=== PATIENT | male | born 1985 | race Caucasian/White ===

== ENCOUNTER → 2016-12-17 14:52 | Outpatient (CLI) | payer MEDICARE | END | disposition home or self-care (01) | LOC: D.CT 14:52 | DX: R22.33 Localized swelling, mass and lump, upper limb, bilateral (principal) ==

== ENCOUNTER → 2017-05-19 08:25 | Outpatient (CLI) | payer MEDICARE ==
[~2017-05-19 08:25] MED LIST: BACLOFEN20 M1 PO; CELEXA20 MG PO; ENDOCET 10-3251 TAB PO; GAS-X80 MG PO; LINZESS145 MCG PO; MUPIROCIN22 GM TOPICAL; NEURONTIN 300300 MG PO; OMEPRAZOLE20 M1 PO; PENTOXIFYLLINE400 MG PO; PROAIR HFA8.5 GM INH; TRAZODONE HCL150 MG PO; UROCIT-K10 MEQ PO; XARELTO20 MG PO; ZANAFLEX4 MG PO
[2017-07-29 12:57] VITALS: BMI 30.1
== END | disposition home or self-care (01) ==
LOC: D.CT 08:25
DX: R10.9 Unspecified abdominal pain (principal)

== ENCOUNTER 2017-07-27 10:54 | Day surgery (SDC) | payer MEDICARE ==
[~2017-07-27] VITALS: Ht 177.8 cm; Wt 95.5 kg
--- NOTE | ~2017-07-27 | OP ---
PATIENT NAME: SHAWNA BERNAL MEDICAL RECORD: [id number] :83 LOCATION:[facility] ADMISSION DATE: SURGEON: ARLENE MARTINO DO DATE OF OPERATION: 07/27/2017 PROCEDURE: Colonoscopy. INDICATIONS FOR PROCEDURE: Chronic constipation, generalized abdominal pain and nausea, change in bowel habits. SCOPE: [employer] video pediatric colonoscope. MEDICATIONS: Propofol 270 mg IV per anesthesia. WITHDRAWAL TIME: 10 minutes. ESTIMATED BLOOD LOSS: Minimal. COMPLICATIONS: None. FINDINGS: Informed consent was given. The patient was made comfortable with the above medication. After reaching an adequate level of sedation by slow IV push, the patient was placed on his left side. A digital rectal examination was performed and was normal. The endoscope was then advanced under direct visualization through the rectum to the cecum with visualization of the appendiceal orifice and the ileocecal valve. The endoscope was slowly withdrawn and mucosa was carefully examined. The prep quality was adequate. There were no visualized polyps on today's examination. There were also no diverticula or other abnormalities. Retroflexion was performed in the rectum with a normal-appearing rectal wall. Random biopsies were taken throughout the colon to rule out microscopic colitis or other abnormalities which could be contributing to symptoms. The endoscope was withdrawn from the patient. The patient tolerated the procedure well and there were no complications. IMPRESSION: Normal colonoscopy to cecum. PLAN AND RECOMMENDATIONS: 1. Discharge home when recovery parameters are met. 2. Followup biopsy specimen results. 3. Proceed with upper endoscopy as scheduled. 4. Recall colonoscopy at age 49 for colorectal cancer screening purposes. TRANSINT:[id number] Voice Confirmation ID: [id number] DOCUMENT ID: [id number] ARLENE MARTINO DO at 1616 CC: [id number] DICTATION DATE: 07/27/17 1427 CORPORATE TRAINING MANAGER: 07/27/17 1841 [facility] 07/27/17 [place] [id number]
[2017-07-27] MEDS ORDERED: TRAZODONE HCL150 MG PO (12:13)
[2017-07-27] MEDS ORDERED: UROCIT-K10 MEQ PO (12:13)
[2017-07-27] MEDS ORDERED: XARELTO20 MG PO (12:14)
[2017-07-27] MEDS ORDERED: NEURONTIN 300300 MG PO (12:14)
[2017-07-27] MEDS ORDERED: MUPIROCIN22 GM TOPICAL (12:15)
[2017-07-27] MEDS ORDERED: GAS-X80 MG PO (12:15)
[2017-07-27] MEDS ORDERED: ENDOCET 10-3251 TAB PO (12:15)
[2017-07-27] MEDS ORDERED: BACLOFEN20 M1 PO (12:16)
[2017-07-27] MEDS ORDERED: PENTOXIFYLLINE400 MG PO (12:17)
[2017-07-27] MEDS ORDERED: PROAIR HFA8.5 GM INH (12:17)
[2017-07-27] MEDS ORDERED: ZANAFLEX4 MG PO (12:18)
[2017-07-27] MEDS ORDERED: LINZESS145 MCG PO (12:18)
[2017-07-27] MEDS ORDERED: CELEXA20 MG PO (12:18)
[2017-07-27] MEDS ORDERED: OMEPRAZOLE20 M1 PO (12:18)
[2017-07-27 12:29] VITALS: BP 117/82; Ht 177.8 cm; Wt 95.5 kg
[2017-07-27 12:56] LABS: HEMATOCRIT 37.7 % (42.0-54.0); HEMOGLOBIN 12.2 g/dL (13.5-17.5); MCHC 32.4 g/dL (31.0-37.0); MCV 86.7 fL (80.0-100.0); MEAN PLATELET VOLUME 9.9 fL (7.4-10.4); RBC 4.35 10x6/uL (4.20-6.10); RDW 14.1 % (11.5-14.5)
[2017-07-27 13:25] LABS: CALC OSMOLALITY 276 mosm/kg (275-300); CALCIUM 9.3 mg/dL (8.5-10.1); CARBON DIOXIDE 26.3 mmol/L (21.0-32.0); CHLORIDE - SERUM 101 mmol/L (98-107); CREATININE - SERUM 0.8 mg/dL (0.6-1.3); GLUCOSE 83 mg/dL (74-106); POTASSIUM - SERUM 3.9 mmol/L (3.5-5.1); SODIUM 140 mmol/L (136-145); UREA NITROGEN 9 mg/dL (7-18); eGFR NON AFRICAN AMERICAN > 90 mL/min (90-120)
== END 2017-07-27 15:15 | disposition home or self-care (01) ==
LOC: D.OPS 10:54
PROVIDERS: Anesthesiology
DX: R10.84 Generalized abdominal pain (principal); R11.0 Nausea; R19.4 Change in bowel habit; Z01.812 Encounter for preprocedural laboratory examination

== ENCOUNTER 2017-07-29 11:37 | Day surgery (SDC) | payer MEDICARE ==
[~2017-07-29] VITALS: Ht 177.8 cm; Wt 95.5 kg
--- NOTE | ~2017-07-29 | OP ---
PATIENT NAME: SHAWNA BERNAL MEDICAL RECORD: [id number] :83 LOCATION:[facility] ADMISSION DATE: SURGEON: ARLENE MARTINO DO DATE OF OPERATION: 07/29/2017 PROCEDURE: EGD with biopsies. INDICATION FOR PROCEDURE: Epigastric and generalized abdominal pain, heartburn, history of H. pylori associated gastritis status post treatment in April 2017. SCOPE: Olympus video gastroscope. MEDICATIONS: Propofol IV per anesthesia. See anesthesia report. ESTIMATED BLOOD LOSS: Minimal. COMPLICATIONS: None. FINDINGS: Informed consent was given. The patient was made comfortable with the above medication. After reaching an adequate level of sedation by slow IV push, the patient was placed on his left side. The endoscope was then advanced under direct visualization through the mouth to the second portion of the duodenum. The upper, middle, and lower thirds of the esophagus appeared normal. At the GE junction, there was some [id number] evidence of LA class B reflux-induced esophagitis. Cold forceps biopsies were taken times 2 at this site to rule out possibility of Martinez's esophagus. The endoscope was advanced beyond the GE junction into the stomach and retroflexed to view the cardia which appeared normal. The fundus also appeared normal. There were a few small scattered benign appearing fundic gland type polyps located in the fundus and body of the stomach. The body of the stomach, antrum, and prepyloric regions all appeared normal. Random biopsies were taken to submit for histology and to rule out H. pylori. The endoscope was advanced beyond the pylorus into the duodenum where the bulb, first portion, and second portion of the duodenum appeared normal. Cold forceps biopsies were taken from both the bulb and second portion of the duodenum to submit for histopathology. The endoscope was then withdrawn from the patient. The patient tolerated the procedure well and there were no complications. IMPRESSION: 1. LA class B reflux-induced esophagitis/possible Martinez's esophagus. Biopsies are pending. 2. Multiple benign-appearing fundic gland type polyps. 3. Otherwise, normal upper endoscopy. PLAN AND RECOMMENDATIONS: 1. Discharge home when recovery parameters are met. 2. GERD precautions. 3. Continue current medications. 4. Gastric emptying scan to rule out gastroparesis. 5. Right upper quadrant ultrasound to rule out gallbladder pathology. 6. Await biopsy results. 7. Consider empiric treatment for small intestinal bacterial overgrowth if all above studies are negative. TRANSINT:[id number] Voice Confirmation ID: [id number] DOCUMENT ID: [id number] OPERATIVE REPORT [id number] SHAWNA BERNAL,ARLENE Bennett DO at 1616 CC: [id number] DICTATION DATE: 07/29/17 1435 CASE MANAGER SPECIALIST: 07/29/17 1616 [facility] 07/29/[address] [address]
[2017-07-29 12:30] LABS: BASOPHILS 0.3 % (0-2); EOSINOPHILS 1.5 % (0-7); HEMATOCRIT 37.2 % (42.0-54.0); HEMOGLOBIN 11.9 g/dL (13.5-17.5); IMMATURE GRANULOCYTES 0.6 % (0-5); LYMPHOCYTES 11.5 % (15-50); MCV 87.5 fL (80.0-100.0); MEAN PLATELET VOLUME 9.8 fL (7.4-10.4); MONOCYTES 8.3 % (2-11); NEUTROPHILS 77.8 % (40-80); PLATELET COUNT 252 10x3/uL (130-400); RBC 4.25 10x6/uL (4.20-6.10); RDW 14.4 % (11.5-14.5); WBC 8.6 10x3/uL (4.8-10.8)
[2017-07-29 12:40] LABS: CALC OSMOLALITY 278 mosm/kg (275-300); CALCIUM 9.3 mg/dL (8.5-10.1); CARBON DIOXIDE 26.5 mmol/L (21.0-32.0); CHLORIDE - SERUM 103 mmol/L (98-107); CREATININE - SERUM 0.8 mg/dL (0.6-1.3); GLUCOSE 95 mg/dL (74-106); POTASSIUM - SERUM 4.1 mmol/L (3.5-5.1); SODIUM 141 mmol/L (136-145); UREA NITROGEN 8 mg/dL (7-18); eGFR NON AFRICAN AMERICAN > 90 mL/min (90-120)
[2017-07-29 12:57] VITALS: BP 106/67; Ht 177.8 cm; Wt 95.5 kg
== END 2017-07-29 15:30 | disposition home or self-care (01) ==
LOC: D.OPS 11:37
PROVIDERS: Internal Medicine Gastroenterology
DX: R10.13 Epigastric pain (principal); R10.84 Generalized abdominal pain; K21.0 Gastro-esophageal reflux disease with esophagitis; Z01.812 Encounter for preprocedural laboratory examination

== ENCOUNTER → 2017-08-07 08:33 | Outpatient (CLI) | payer MEDICARE ==
[2017-07-29 12:57] VITALS: BMI 30.1
== END | disposition home or self-care (01) ==
LOC: D.NM 08-03 11:30
DX: R14.0 Abdominal distension (gaseous) (principal); R10.9 Unspecified abdominal pain; R11.0 Nausea

== ENCOUNTER 2019-05-25 07:15 | Day surgery (SDC) | payer MEDICARE ==
[~2019-05-25] VITALS: Ht 177.8 cm; Wt 88.6 kg
[2019-05-25 08:39] VITALS: BP 101/66; Ht 177.8 cm; Wt 88.6 kg
--- NOTE | 2019-05-25 11:19 | NUR ---
LATE ENTRY- 0830 LACTATED RINGERS 1,000ML KVO TO LEFT HAND
--- NOTE | 2019-05-25 15:35 | OP ---
PATIENT NAME: SHAWNA BERNAL MEDICAL RECORD: [id number] :83 LOCATION:[facility] ADMISSION DATE: SURGEON: ARLENE MARTINO DO DATE OF OPERATION: 05/25/2019 PROCEDURE: EGD. INDICATIONS FOR PROCEDURE: Epigastric pain, heartburn, chronic constipation. SCOPE: Olympus video gastroscope. MEDICATIONS: Propofol 120 mg IV per anesthesia. ESTIMATED BLOOD LOSS: None. COMPLICATIONS: None. FINDINGS: Informed consent was given. The patient was made comfortable with the above medication. After reaching an adequate level of sedation by slow IV push, the patient was placed on his left side. The endoscope was advanced under direct visualization through the mouth to the second portion of the duodenum with ease. The entire esophagus appeared normal down to the GE junction. At the GE junction, there was evidence of LA class B reflux-induced esophagitis. The endoscope was advanced beyond GE junction into the stomach and retroflexed to view the cardia and fundus, which appeared normal. The mucosa of the body of the stomach as well as the antrum and prepyloric regions also appeared normal. No biopsies were taken today as the patient has been on Xarelto up until today. The endoscope was advanced beyond the pylorus into the duodenum, which appeared normal to the second portion. The endoscope was withdrawn from the patient. The patient tolerated the procedure well and there were no complications. IMPRESSION: 1. LA class B reflux-induced esophagitis. 2. Otherwise, normal esophagogastroduodenoscopy. PLAN AND RECOMMENDATIONS: 1. Discharge home when recovery parameters are met. 2. Maintain a gastroparesis diet consisting with smaller more frequent meals while keeping in mind that anything higher in protein and fats could produce more symptoms. 3. We will continue to try to increase better bowel habits, which should help with overall constipation and abdominal pain. We will try to get the patient approved for Amitiza 24 mcg twice daily to see if this helps more than the Linzess daily is helping. 4. Increase omeprazole to 40 mg daily times 8 weeks, then reduce back to 20 mg daily or as needed dosing of Pepcid. 5. Follow up in GI clinic in 2 months. TRANSINT:[id number] Voice Confirmation ID: [id number] DOCUMENT ID: [id number] OPERATIVE REPORT [id number] SHAWNA BERNAL ARLENE MARTINO DO at 1535 CC: [id number] DICTATION DATE: 05/25/19 0936 REVIEW ANALYST: 05/25/19 1031 [facility] 05/25/19 [place] [id number] [place] [address]
== END 2019-05-25 10:40 | disposition home or self-care (01) ==
LOC: D.OPS 07:15
PROVIDERS: ATTEND Internal Medicine Gastroenterology
DX: K21.0 Gastro-esophageal reflux disease with esophagitis (principal); R12 Heartburn; K59.09 Other constipation

== ENCOUNTER 2019-09-03 19:11 | Inpatient (IN) | payer MEDICARE ==
[~2019-09-03] VITALS: Ht 177.8 cm; Wt 92.7 kg
--- NOTE | 2019-09-03 20:00 | NUR ---
PT HAD BM OF GREEN SOFT STOOL AT THIS TIME.
[2019-09-03 20:02] LABS: BASOPHILS 0.1 % (0-2); EOSINOPHILS 0.4 % (0-7); HEMATOCRIT 24.9 % (42.0-54.0); HEMOGLOBIN 7.7 g/dL (13.5-17.5); IMMATURE GRANULOCYTES 0.3 % (0-5); LYMPHOCYTES 6.2 % (15-50); MCH 25.2 pg (26.0-34.0); MCHC 30.9 g/dL (31.0-37.0); MCV 81.6 fL (80.0-100.0); MEAN PLATELET VOLUME 9.4 fL (7.4-10.4); MONOCYTES 6.2 % (2-11); NEUTROPHILS 86.8 % (40-80); RBC 3.05 10x6/uL (4.20-6.10); WBC 9.7 10x3/uL (4.8-10.8)
[2019-09-03 20:10] LABS: PLATELET COUNT 451 10x3/uL (130-400)
[2019-09-03 20:14] LABS: CALC OSMOLALITY 263 mosm/kg (275-300); CALCIUM 8.4 mg/dL (8.5-10.1); CHLORIDE - SERUM 96 mmol/L (98-107); CREATININE - SERUM 0.9 mg/dL (0.6-1.3); GLUCOSE 122 mg/dL (74-106); INR 1.33 (0.85-1.17); POTASSIUM - SERUM 3.9 mmol/L (3.5-5.1); PROTIME 16.4 SECONDS (11.6-15.0); SODIUM 130 mmol/L (136-145); UREA NITROGEN 17 mg/dL (7-18); eGFR NON AFRICAN AMERICAN > 90 mL/min (90-120)
[2019-09-03 20:15] LABS: APTT 37.9 SECONDS (22.8-39.4)
[2019-09-03 20:31] LABS: ALKALINE PHOSPHATASE 68 U/L (30-120); ALT (SGPT) 21 U/L (10-68); CKMB 1.7 U/L (0.0-3.6); CREATINE KINASE 285 UL (21-232); PROTEIN - SERUM 7.8 g/dL (6.4-8.2)
[2019-09-03 20:32] LABS: TROPONIN-I < 0.017 ng/mL (0.000-0.060)
[2019-09-03 21:54] LABS: BILIRUBIN NEGATIVE (NEGATIVE); GLUCOSE NEGATIVE (NEGATIVE); KETONE NEGATIVE (NEGATIVE); NITRITE NEGATIVE (NEGATIVE); SPECIFIC GRAVITY 1.015 (1.005-1.020); UROBILINOGEN NORMAL (NORMAL)
[2019-09-03 21:55] LABS: BACTERIA FEW /hpf (NEGATIVE); EPITHELIAL CELLS 0-5 /hpf (0-5); RED CELLS - URINE 0-5 /hpf (0-5); WHITE CELLS - URINE 0-5 /hpf (NEGATIVE)
--- NOTE | 2019-09-04 01:18 | NUR ---
PT CONSENT SIGNED FOR BLOOD, BLOOD STARTED AT THIS TIME.
--- NOTE | 2019-09-04 02:10 | NUR ---
PT ARRIVED TO ROOM VIA BED FROM ER. FAMILY PRESENT AT BEDSIDE.
[2019-09-04] MEDS ORDERED: MIDODRINE HCL5 MG PO (03:59)
[2019-09-04] MEDS ORDERED: MIRALAX17 GM PO (04:00)
[2019-09-04] MEDS ORDERED: GLYCERIN SUPPOSITORY RC (04:05)
[2019-09-04 04:49] VITALS: BP 108/67; BMI 28.8
[2019-09-04 08:36] VITALS: BP 122/76
[2019-09-04 12:22] VITALS: BP 146/73
--- NOTE | 2019-09-04 13:50 | NUR ---
PT FAMILY STATED THEY HAD ALREADY GIVEN MORNING AND LUNCH MEDICATIONS.
[2019-09-04 13:52] LABS: BASOPHILS 0.3 % (0-2); EOSINOPHILS 0.6 % (0-7); HEMOGLOBIN 8.3 g/dL (13.5-17.5); IMMATURE GRANULOCYTES 0.2 % (0-5); LYMPHOCYTES 12.3 % (15-50); MCH 25.3 pg (26.0-34.0); MCHC 30.7 g/dL (31.0-37.0); MCV 82.3 fL (80.0-100.0); NEUTROPHILS 76.6 % (40-80); RBC 3.28 10x6/uL (4.20-6.10); RDW 15.2 % (11.5-14.5)
[2019-09-04 13:57] LABS: WBC 6.2 10x3/uL (4.8-10.8)
[2019-09-04 13:58] LABS: PLATELET COUNT 335 10x3/uL (130-400)
[2019-09-04 14:11] LABS: % SATURATION 7 % (15-55); IRON 18 ug/dl (35-150); TOTAL IRON BIND CAPACITY 226 ug/dl (260-445); UNSAT IRON BIND CAPACITY 208 ug/dl (150-375)
[2019-09-04 14:42] LABS: CALC OSMOLALITY 281 mosm/kg (275-300); CALCIUM 8.4 mg/dL (8.5-10.1); CARBON DIOXIDE 25.3 mmol/L (21.0-32.0); CHLORIDE - SERUM 107 mmol/L (98-107); FERRITIN 235 ng/mL (3-244); GLUCOSE 122 mg/dL (74-106); MAGNESIUM - SERUM 2.1 mg/dL (1.8-2.4); POTASSIUM - SERUM 3.8 mmol/L (3.5-5.1); SODIUM 141 mmol/L (136-145); UREA NITROGEN 12 mg/dL (7-18); eGFR NON AFRICAN AMERICAN > 90 mL/min (90-120)
--- NOTE | 2019-09-04 17:00 | NUR ---
I have reviewed this patient and I concur with the Shift Assessment completed by the Licensed Practical Nurse today this shift.
[2019-09-04 17:24] VITALS: BP 124/69
--- NOTE | 2019-09-04 19:15 | NUR ---
AWAKE AND ALERT IN BED 2 VISITORS PRESENT AT THIS TIME PT STATES HE HAS NO CURRENT NEEDS RESP HERE WITH BX TX BED LOW AND LOCKED CALL LIGHT WITH VISITOR/CAREGIVER PT UNABLE TO USE ANY TYPE OF CALL BUTTON
--- NOTE | 2019-09-04 19:45 | NUR ---
NOTED ORDERS NOW THAT WERE ORDERED BEFORE 1330 SCD IS NOT APRTOPT[]IATE DUE TO WOUNDS AND I AM NOT APPLYING
[2019-09-04 20:00] VITALS: BP 121/79
[2019-09-05] VITALS: BP 105/71
[2019-09-05 04:00] VITALS: BP 86/39
--- NOTE | 2019-09-05 04:54 | NUR ---
I have reviewed this patient and I concur with the Shift Assessment completed by the Licensed Practical Nurse today this shift.
[2019-09-05 07:01] LABS: BASOPHILS 0.5 % (0-2); EOSINOPHILS 1.9 % (0-7); HEMATOCRIT 24.5 % (42.0-54.0); IMMATURE GRANULOCYTES 0.2 % (0-5); LYMPHOCYTES 19.3 % (15-50); MCH 25.3 pg (26.0-34.0); MCHC 30.2 g/dL (31.0-37.0); MCV 83.9 fL (80.0-100.0); MEAN PLATELET VOLUME 9.5 fL (7.4-10.4); MONOCYTES 12.1 % (2-11); PLATELET COUNT 284 10x3/uL (130-400); RBC 2.92 10x6/uL (4.20-6.10); RDW 15.5 % (11.5-14.5)
[2019-09-05 07:06] LABS: ALBUMIN 2.5 g/dL (3.4-5.0); ALKALINE PHOSPHATASE 52 U/L (30-120); ALT (SGPT) 18 U/L (10-68); BILIRUBIN - TOTAL 0.31 mg/dL (0.2-1.3); CALC OSMOLALITY 282 mosm/kg (275-300); CALCIUM 8.2 mg/dL (8.5-10.1); CARBON DIOXIDE 27.1 mmol/L (21.0-32.0); CHLORIDE - SERUM 109 mmol/L (98-107); CREATININE - SERUM 0.9 mg/dL (0.6-1.3); GLUCOSE 94 mg/dL (74-106); MAGNESIUM - SERUM 2.2 mg/dL (1.8-2.4); POTASSIUM - SERUM 3.9 mmol/L (3.5-5.1); PROTEIN - SERUM 7.1 g/dL (6.4-8.2); SODIUM 142 mmol/L (136-145); UREA NITROGEN 12 mg/dL (7-18); eGFR NON AFRICAN AMERICAN > 90 mL/min (90-120)
[2019-09-05 07:29] LABS: WBC 4.3 10x3/uL (4.8-10.8)
[2019-09-05 07:30] LABS: HEMOGLOBIN 7.4 g/dL (13.5-17.5)
--- NOTE | 2019-09-05 08:00 | NUR ---
CALLED PHARMACY AND SPOKE WITH OLIVIA, INFORMED HIM THAT I NEED TRENTAL FOR PT.
--- NOTE | 2019-09-05 08:40 | NUR ---
NOTIFIED CHENG RUVALCABA APRN, OF CRITICAL HGB OF 7.4. NO NEW ORDERS AT THIS TIME.
--- NOTE | 2019-09-05 14:56 | NUR ---
LATERAL LEFT FOOT 1CM X 1CM X 0.5CM HEALING STAGE 3 PRESSURE INJURY. RIGHT HEEL HAS 0.5CM X 2CM X SCAB HEALED PRESSURE INJURY. PT STATES BOTH WERE CAUSED BY ILL-FITTING SHOES/BOOTS. HE HAS BEEN A PT OF DR. HUNG AT [facility] FOR SOME TIME NOW AND HAS APPTS EVERY 2 WEEKS. CURRENT TX IS SILVER ROPE. RECOMMEND CONTINUING WITH SILVER ROPE APPLIED TO WOUND BED (WE WILL REPLACE WITH [employer]). WOUND CARE WILL CONTINUE MONITORING.
[2019-09-05 15:34] VITALS: Ht 177.8 cm; Wt 92.7 kg
--- NOTE | 2019-09-05 16:52 | NUR ---
LT WRIST IV LEAKING. D/C IV WITH CATHETER TIP INTACT. LT AC IV ALSO NOT PATENT, D/C WITH CATHETER TIP INTACT. NEW 20G IV STARTED TO RT FA X1 STICK. UNIT OF BLOOD STARTED INFUSING AT THIS TIME. BP A LITTLE LOW. WILL NOFITY DOCTOR. PT DENIES ANY NEEDS AT THIS TIME. CALL LIGHT IN REACH, FAMILY AT BEDSIDE,NAD NOTED,W ILL CONTINUE TO MONITOR.
[2019-09-05 20:00] VITALS: BP 114/78
[2019-09-06] VITALS: BP 117/69
--- NOTE | 2019-09-06 02:47 | NUR ---
RESTING WITH EYES CLOSED, RESPERATIONS EVEN, NO S/S DISTRESS NOTED.
[2019-09-06 04:00] VITALS: BP 155/66
[2019-09-06 06:00] LABS: CALC OSMOLALITY 284 mosm/kg (275-300); CARBON DIOXIDE 28.3 mmol/L (21.0-32.0); CHLORIDE - SERUM 109 mmol/L (98-107); CREATININE - SERUM 0.9 mg/dL (0.6-1.3); GLUCOSE 94 mg/dL (74-106); POTASSIUM - SERUM 3.8 mmol/L (3.5-5.1); SODIUM 143 mmol/L (136-145); UREA NITROGEN 13 mg/dL (7-18); eGFR NON AFRICAN AMERICAN > 90 mL/min (90-120)
[2019-09-06 06:08] LABS: HEMATOCRIT 26.4 % (42.0-54.0); HEMOGLOBIN 8.2 g/dL (13.5-17.5); MCH 25.7 pg (26.0-34.0); MCHC 31.1 g/dL (31.0-37.0); MCV 82.8 fL (80.0-100.0); MEAN PLATELET VOLUME 10.4 fL (7.4-10.4); PLATELET COUNT 286 10x3/uL (130-400); RBC 3.19 10x6/uL (4.20-6.10); RDW 15.6 % (11.5-14.5); WBC 4.6 10x3/uL (4.8-10.8)
[2019-09-06 07:35] LABS: BASOPHILS 2 % (0-2); EOSINOPHILS 3 % (0-7); LYMPHOCYTES 10 % (15-50); MONOCYTES 12 % (2-11); NEUTROPHILS 73 % (40-80); PLATELET ESTIMATE NORMAL
[2019-09-06 09:00] VITALS: BP 128/80
--- NOTE | 2019-09-06 09:18 | NUR ---
AM MEDS GIVEN AT THIS TIME. PT A/O X4, RESP EVEN AND NONLABORED ON RA. RT FA IV INFUSING NS AT 125CC/HR. PT DENIES ANY NEEDS AT THIS TIME, FAMILY AT BEDSIDE, RUBIN DRAINING YELLOW URINE TO GRAVITY. CALL LIT IN REACH, NAD NOTED, WILL CONTINUE TO MONITOR.
[2019-09-06] MEDS ORDERED: OMNICEF300 MG PO (09:59)
--- NOTE | 2019-09-06 10:46 | NUR ---
PROVIDED VERBAL AND WRITTEN DISCHARGE TEACHING TO PT AND GRANDMOTHER, BOTH VERBALIZED UNDERSTANDING. HEART MONITOR REMOVED AND TAKEN TO CROWN IRONER OPERATOR. ACCORDING TO PT'S GRANDMOTHER PT'S MOTHER IS VERY CONCERN AND NOT IN AGREEANCE WITH PT BEING DISCHARGE, HAVE MANY QUESTIONS FOR DOCTOR. NOTIFIED CHENG LEMUS ABOUT PT'S CONCERNS AND REQUESTING TO SPEAK WITH DOCTOR.
--- NOTE | 2019-09-06 12:58 | NUR ---
NOTIFIED CHENG RUVALCABA APRN THAT PT'S MOTHER IS STILL WAITING TO TALK TO DOCTOR.
--- NOTE | 2019-09-06 13:34 | NUR ---
OT NOTE: PT CURRENTLY IN ELEC WC THROUGHOUT FACILITY. PT USES [facility] FOR TRANSFER TO AND FROM BED. CURRENTLY AT [facility]. NO OT RECOMMENDED AT THIS TIME TIERNEY PALACIOS, OTR/L
--- NOTE | 2019-09-06 14:37 | NUR ---
RT FA IV D/C WITH CATHETER TIP INTACT. PT LEFT UNIT VIA POWER CHAIR, WITH ALL BELONGINGS, ACCOMPANIED BY FAMILY. NAD NOTED.
--- NOTE | 2019-09-06 17:14 | MORECARE ---
CASE MANAGEMENT DISCHARGE SUMMARY PATIENT: SHAWNA BERNAL UNIT: [id number] ADM DATE: 09/04/19 AGE: 33 : [birth year] SEX: M ROOM/BED: D.2133 AUTHOR: CHERYL HERRERA PHYSICIAN: REFERRING PHYSICIAN: SHANNA RAYO DO DATE OF SERVICE: 09/06/19 Discharge Plan Patient Name: SHAWNA BERNAL [facility] 1985 Planned Disposition: Home with Home Health Anticipated Discharge Date: 09/06/19 Discharge Date: 09/06/2019 Expected LOS: 2 Initial Reviewer: [email or web address] Initial Review Date: 09/06/2019 Generated: 09/06/19 6:14 pm External Providers External Provider: [facility] Next Contact Date: 09/06/2019 Service Request Date: Service Type: Resolution: Reviewer: Comments: Patient Name: SHAWNA BERNAL Page [phone] at 1714 All edits/amendments must be made on the electronic document DICTATION DATE: 09/06/191713 CLIENT DEVELOPMENT CONSULTANT: ROSANGELA 09/06/191713 RPT#: [id number] DC DATE:09/06/19 STATUS: DIS IN [facility] [address] [place] [address] END OF REPORT
--- NOTE | 2019-09-06 17:21 | MORECARE ---
CASE MANAGEMENT DISCHARGE SUMMARY PATIENT: SHAWNA BERNAL UNIT: [id number] ADM DATE: 09/04/19 AGE: 33 : 83 SEX: M ROOM/BED: D.2133 AUTHOR: CHERYL HERRERA PHYSICIAN: REFERRING PHYSICIAN: SHANNA RAYO DO DATE OF SERVICE: 09/06/19 Discharge Plan Patient Name: SHAWNA BERNAL Facility: [facility]:[place] : 1985 Planned Disposition: Home with Home Health Anticipated Discharge Date: 09/06/19 Discharge Date: 09/06/2019 Expected LOS: 2 Initial Reviewer: [email or web address] Initial Review Date: 09/06/2019 Generated: 09/06/19 6:21 pm Comments DCP- Discharge Planning Updated by [email or web address]: Jhon Cedeño on 09/06/19 4:[address] Patient Name: SHAWNA BERNAL Admission Status: ER Accout number: [id number] Admission Date: 09-04-2019 : 1985 Admission Diagnosis: Attending: SHANNA RAYO Current LOS: 2 Anticipated DC Date: 09-06-2019 Planned Disposition: Home with Home Health Primary Insurance: MEDICARE A & B PLANNED EXERNAL PROVIDER: [facility] Discharge Planning Comments: CM MET WITH PT AND HIS GRANDMOTHER IN ROOM TO DISCUSS DISCHARGE PLANNING AND NEEDS.SHAWNA BERNAL provided verbal consent to discuss current and ongoing needs with/in the presence of: GRANDMOTHER. PT REPORTS LIVING AT HOME DEPENDENTLY WITH HIS PARENTS. PT HAS ALL NEEDED MEDICAL EQUIPMENT WITH NO PROVIDER PREFERNECE. PT HAS PERSONAL CARE WITH [employer] [facility] THURSDAY THRU THURSDAY, 8 HOURS PER DAY. PT HAS [facility] FOR WOUND CARE ON [place]. CM DISCUSSED AVAILABILITY OF HOME HEALTH, REHAB SERVICES AND MEDICAL EQUIPMENT. PT DENIES DISCHARGE NEEDS, REPORTS HIS PARENTS WILL PICK HIM UP FOR DISCHARGE HOME. IMPORTANT MESSAGE FROM MEDICARE PROVIDED AND EXPLAINED. Interactive Media Designer: Jhon Cedeño DCPIA - Discharge Planning Initial Assessment Updated by [email or web address]: Jhon Cedeño on 09/06/19 5:14 pm * Is the patient Alert and Oriented? Yes * How many steps to enter\exit or inside your home? RAMP * PCP DR. SUÁREZ * [facility]acy [facility] * Preadmission Environment Home with Family * ADLs Total Dependent * Equipment Hospital Bed Kim Lift Nebulizer Other Shower Chair * Other Equipment AIR MATTRESS STANDING TABLE / CHAIR NO MEDICAL EQUIPMENT PROVIDER PREFERENCE * List name and contact numbers for known caregivers / representatives who currently or will assist patient after discharge: GOYO BERNAL, FATHER, * Verbal permission to speak to the caregivers and representatives has been obtained from the patient. N/A * Community resources currently utilized Home Health Private Duty Care * Please name any agencies selected above. [facility], WOUND CARE ON [place] [employer] PERSONAL CARE, M-F 8 HOURS PER DAY * Additional services required to return to the preadmission environment? No * Can the patient safely return to the preadmission environment? Yes * Has this patient been hospitalized within the prior 30 days at any hospital? No Coverage Notice Reviewer: [email or web address] Joaquim Cedeño Notice Issued Date-Time: 09/06/2019 10:00 Notice Type: Patient Choice Letter Notice Delivered To: Family Member Relationship to Patient: Grandmother Legal Compliance Officer Name: Delivery Method: HAND - Hand Delivered Tara Days: Prior Verbal Notification: Recipient Understood Notice: Yes Recipient Signature: Yes Med Rec Note Co-signed by Attending: Coverage Notice Comment: [facility] Reviewer: [email or web address] Joaquim Cedeño Notice Issued Date-Time: 09/06/2019 10:00 Notice Type: IM Discharge Notice Notice Delivered To: Family Member Relationship to Patient: Grandmother Legal Compliance Officer Name: Delivery Method: HAND - Hand Delivered Tara Days: Prior Verbal Notification: Recipient Understood Notice: Yes Recipient Signature: Yes Med Rec Note Co-signed by Attending: Coverage Notice Comment: Last DP export: 09/06/19 4:14 p Patient Name: SHAWNA BERNAL Page [phone] at 1721 All edits/amendments must be made on the electronic document DICTATION DATE: 09/06/191720 CHIPS SCREEN TENDER: ROSANGELA 09/06/191720 RPT#: [id number] DC DATE:09/06/19 STATUS: DIS IN [facility] [address] [place] [address] END OF REPORT
== END 2019-09-06 14:38 | disposition home health service (06) | DRG 698 ==
LOC: D.ER 19:11 → D.M2 09-04 00:54
PROVIDERS: Family Medicine; Internal Medicine Nephrology; ADMIT Family Medicine; ATTEND Family Medicine
DX: T83.518A Infection and inflammatory reaction due to other urinary catheter, initial encounter (principal); L89.893 Pressure ulcer of other site, stage 3; G82.50 Quadriplegia, unspecified; E87.1 Hypo-osmolality and hyponatremia; Y84.9 Medical procedure, unspecified as the cause of abnormal reaction of the patient, or of later complication, without mention of misadventure at the time of the procedure; K59.00 Constipation, unspecified; D50.9 Iron deficiency anemia, unspecified; Z86.718 Personal history of other venous thrombosis and embolism; Z79.01 Long term (current) use of anticoagulants

== ENCOUNTER → 2019-09-16 12:30 | Outpatient (CLI) | payer MEDICARE ==
[~2019-09-16] VITALS: Ht 177.8 cm; Wt 90.9 kg
[~2019-09-16 12:30] MED LIST changes: +GLYCERIN SUPPOSITORY RC; +MIDODRINE HCL5 MG PO; +MIRALAX17 GM PO; +OMNICEF300 MG PO
[2019-09-16 14:02] VITALS: Ht 177.8 cm; Wt 90.9 kg
--- NOTE | 2019-09-16 16:30 | NUR ---
RIGHT HAND IV FOUND TO BE INFILTRATED BY KODI MARTINEZ RN. BLOOD PAUSED AND IV RESITED IN LEFT WRIST BY KODI MARTINEZ RN AND INFILTRATED IV DC'D WITH TIP INTACT.
--- NOTE | 2019-09-16 19:05 | NUR ---
PATIENT WITHOUT SIGNS OR SYMPTOMS OF TRANSFUSION REACTION. PATIENT DISCHARGED IN PERSONAL MOTORIZED WHEELCHAIR
== END | disposition home or self-care (01) ==
LOC: D.OPS 12:30
PROVIDERS: ATTEND Internal Medicine Hematology & Oncology
DX: D64.9 Anemia, unspecified (principal); E87.6 Hypokalemia; R53.2 Functional quadriplegia

== ENCOUNTER 2019-10-12 11:50 | Outpatient (CLI) | payer MEDICARE ==
[~2019-10-12] VITALS: Ht 177.8 cm; Wt 90.9 kg
[2019-10-12 14:58] VITALS: BP 103/56; Ht 177.8 cm; Wt 90.9 kg
--- NOTE | 2019-10-12 17:18 | NUR ---
2ND UNIT OF BLOOD COMPLETED. FLUSHING WITH NS. 4000 ML CLEAR YELLOW URINE OUT IN RUBIN.
--- NOTE | 2019-10-12 17:37 | NUR ---
HAS DONE WELL. IV REMOVED WITH CATHALON INTACT. ALL DC INSTRUCTIONS GIVEN. DC'D HOME WITH DAD. ADVISED TO CALL OR COME BACK IF ANY PROBLEMS.
== END 2019-10-12 17:35 | disposition home or self-care (01) ==
LOC: D.OPS 11:50
PROVIDERS: ATTEND Internal Medicine Hematology & Oncology
DX: D64.9 Anemia, unspecified (principal)